=== PATIENT | female | born 1975 | race Caucasian/White ===

== ENCOUNTER 2019-08-30 14:48 | Emergency (ER) | payer MEDICAID ==
[~2019-08-30] VITALS: Ht 172.7 cm; Wt 81.9 kg
[2019-08-30 14:56] VITALS: BP 137/83
== END 2019-08-30 16:54 | disposition home or self-care (01) ==
LOC: ED 16:50
DX: G24.3 Spasmodic torticollis (principal); M50.323 Other cervical disc degeneration at C6-C7 level; F17.200 Nicotine dependence, unspecified, uncomplicated
CPT/HCPCS: 72050; 99283

== ENCOUNTER 2020-10-26 14:32 | Emergency (ER) | payer MEDICAID ==
[~2020-10-26] VITALS: Ht 170.2 cm; Wt 90.0 kg
[2020-10-26 14:37] VITALS: BP 124/70
--- NOTE | 2020-10-26 15:20 | NUR ---
INFORMED BY REG STAFF THAT PT SIGNED REQUEST TO LEAVE FROM TRIAGE. PT LWBS.
== END 2020-10-26 15:22 | disposition left against medical advice (07) ==
LOC: ED 14:45
DX: R42 Dizziness and giddiness (principal); R11.0 Nausea; Z53.21 Procedure and treatment not carried out due to patient leaving prior to being seen by health care provider
CPT/HCPCS: 93005